=== PATIENT | female | born 1995 | race African-American/Black ===

== ENCOUNTER 2017-11-25 08:14 | Observation (INO) ==
[2017-11-25] MEDS ORDERED: HYDROmorphone 2 MG/1 ML VIAL IV PRN (10:37)
[2017-11-25] MEDS ORDERED: ONDANSETRON 4 MG/2 ML VIAL IV PRN (10:37)
[2017-11-25] MEDS ORDERED: SODIUM CHLORIDE 0.9% 1,000 ML IV STA (10:38)
[2017-11-25 10:42] LABS: Basophils % 0.5 % (0.0-0.8); Eosinophils # 0.1 10*3/uL (0.0-0.87); Eosinophils % 1.4 % (0.00-10.9); Hematocrit 41.9 VOL% (35.7-47.0); Hemoglobin 13.5 GM/DL (12.0-16.0); Immature Granulocytes % 0.2 %; Immature Granulocytes Absolute 0.01 #; Lymphocytes # 1.6 10*3/uL (1.4-4.0); Lymphocytes % 38.4 % (21.3-54.2); Mean Corpuscular HGB Conc 32.2 GM/DL (32-36); Mean Corpuscular Hemoglobin 29 PG (27-34); Mean Corpuscular Volume 90.5 FL (87-102); Mean Platelet Volume 9.6 FL (9.6-12.0); Monocytes # 0.4 10*3/uL (0.11-0.8); Monocytes % 9.1 % (1.7-12.7); Neutrophils # 2.2 10*3/uL (1.4-7.4); Neutrophils % 50.4 % (38.7-73.9); Platelet Count 252 T/CUMM (130-400); Red Blood Count 4.63 MC/CUMM (3.8-5.5); Red Cell Distribution Width 13.4 % (9.3-17.3); White Blood Count 4.3 T/CUMM (4-12)
[2017-11-25 10:56] LABS: PT Patient Result 10.7 SECS; Partial Thromboplastin Time 28.2 SECS (0-40)
[2017-11-25 10:58] LABS: Alanine Aminotransferase 36 U/L (13-56); Albumin 3.8 G/DL (3.4-5.0); Alkaline Phosphatase 71 U/L (45-117); Aspartate Amino Transferase 31 U/L (0-37); Bilirubin,Total < 0.39 MG/DL (0.2-1.0); Blood Urea Nitrogen 5 MG/DL (7-18); Calcium 9.1 MG/DL (8.5-10.1); Glucose 91 MG/DL (74-106); Osmolality,Calculated 266.1 MOS/KG (273-304); Potassium 3.8 MMOL/L (3.5-5.1); Sodium 135 MMOL/L (136-145); Total Protein 8.2 G/DL (6.4-8.3)
[2017-11-25 11:42] LABS: Eosinophils 1 % (0-10); Hypochromasia 1+; Lymphocytes 26 % (20-55); Segmented Neutrophils 63 % (50-85); Total Cells Counted 100
[2017-11-25 11:43] LABS: Atypical Lymphocytes Few; Platelet Estimate Normal
[2017-11-25] MEDS ORDERED: DESFLURANE 1 UNIT/15 MINUTE INH ONE ×2 (14:29→15:29)
[2017-11-25] MEDS ORDERED: TISSUE ADHESIVE 1 EACH APPLICATOR TOP ONE (15:05)
[2017-11-25] MEDS ORDERED: IBUPROFEN 800 MG TABLET PO PRN (15:15)
[2017-11-25] MEDS ORDERED: MAGNESIUM HYDROXIDE SUSP 30 ML UDCUP PO PRN (15:15)
[2017-11-25] MEDS ORDERED: BISACODYL 10 MG SUPP RECTAL PRN (15:15)
[2017-11-25] MEDS ORDERED: PROMETHAZINE 25 MG/1 ML VIAL IM PRN (15:15)
[2017-11-25] MEDS ORDERED: DOCUSATE SODIUM 100 MG CAPSULE PO PRN (15:15)
[2017-11-25] MEDS ORDERED: BENZOCAINE/MENTHOL LOZENGE 18/BOX PO PRN (15:15)
[2017-11-25] MEDS ORDERED: ACETAMINOPHEN 325 MG TABLET PO PRN (15:15)
[2017-11-25] MEDS ORDERED: PROPOFOL 200 MG/20 ML VIAL IV ONE (15:29)
[2017-11-25] MEDS ORDERED: ONDANSETRON 4 MG/2 ML VIAL ONE (15:29)
[2017-11-25] MEDS ORDERED: fentaNYL 100 MCG/2 ML VIAL ONE (15:29)
[2017-11-25] MEDS ORDERED: ACETAMINOPHEN 1,000 MG/100 ML VIAL IV ONE (15:30)
[2017-11-25] MEDS ORDERED: KETOROLAC 30 MG/1 ML VIAL ONE (15:30)
[2017-11-25] MEDS ORDERED: ROCURONIUM 100 MG/10 ML VIAL IV ONE (15:30)
[2017-11-25] MEDS ORDERED: LACTATED RINGERS 1,000 ML IV SCH (15:30)
[2017-11-25 19:23] LABS: Hematocrit 36.3 VOL% (35.7-47.0); Hemoglobin 12.3 GM/DL (12.0-16.0)
[2017-11-25] MEDS ORDERED: SIMETHICONE CHEW 80 MG TABLET PO PRN (20:03)
[2017-11-26 06:10] LABS: Basophils % 0.2 % (0.0-0.8); Eosinophils # 0.1 10*3/uL (0.0-0.87); Hematocrit 36.6 VOL% (35.7-47.0); Hemoglobin 11.6 GM/DL (12.0-16.0); Immature Granulocytes % 0.2 %; Immature Granulocytes Absolute 0.01 #; Lymphocytes # 1.8 10*3/uL (1.4-4.0); Lymphocytes % 33.4 % (21.3-54.2); Mean Corpuscular HGB Conc 31.7 GM/DL (32-36); Mean Corpuscular Hemoglobin 29 PG (27-34); Mean Corpuscular Volume 90.8 FL (87-102); Mean Platelet Volume 9.4 FL (9.6-12.0); Monocytes # 0.5 10*3/uL (0.11-0.8); Monocytes % 8.8 % (1.7-12.7); Neutrophils % 56.4 % (38.7-73.9); Platelet Count 231 T/CUMM (130-400); Red Blood Count 4.03 MC/CUMM (3.8-5.5); Red Cell Distribution Width 13.5 % (9.3-17.3); White Blood Count 5.2 T/CUMM (4-12)
[2017-11-26 08:39] VITALS: BP 95/63
== END 2017-11-26 11:42 | disposition home or self-care (01) ==
LOC: N.ED 08:14 → N.EDINP 08:14 → N.OB 11:23
PROVIDERS: ADMIT Obstetrics & Gynecology; ATTEND Obstetrics & Gynecology